=== PATIENT | male | born 1985 | race Caucasian/White ===

== ENCOUNTER 2020-07-17 08:16 | Emergency (ER) | payer OTHER ==
[~2020-07-17] VITALS: Ht 180.3 cm; Wt 94.5 kg
[2020-07-17] MEDS ORDERED: DEXAMETHASONE SOD PHOS 10 MG/ML VIAL. PO ONE (10:30)
[2020-07-17] MEDS ORDERED: METHOCARBAMOL 500 MG TABLET PO ONE (10:30)
[2020-07-17] MEDS ORDERED: IBUPROFEN 600 MG TABLET. PO ONE (10:30)
--- NOTE | 2020-07-17 10:47 | RAD ---
Exam Date: 07/17/2020 10:30 AM XR BILATERAL HIP (WITH OR WITHOUT PELVIS) 2 VIEWS_RIGHT Indication: Reason: RIGHT HIP PAIN. RADICULOPATHY. NKI. / Spl. Instructions: / History: FINDINGS/ IMPRESSION: No acute fracture or dislocation. Alignment and joint spaces are maintained. The soft tissues are w ithin normal limits. Electronically signed by: Stan Aponte MD (07/17/2020 10:45 AM) [id number]
[2020-07-17] MEDS ORDERED: IBUPROFEN 800 MG TABLET. PO ONE ×2 (10:51→11:00)
[2020-07-17] MEDS ORDERED: TIZANIDINE HCL2 MG PO (11:55)
[2020-07-17] MEDS ORDERED: METH4TAB2 PO (11:55)
--- NOTE | 2020-07-17 11:55 | PHYS DOC ---
Past History Past Medical History: Hypothyroid, Other Additional Past Medical Histor: DEGENERATIVE DISC DISEASE MID BACK; LOW TESTOSTERONE Past Surgical History: No Surgical History Alcohol Use: Occasionally Additional Alcohol Information: 1-2OZ WHISKEY NIGHTLY Adult General Chief Complaint Chief Complaint: HIP PAIN HPI HPI Patient is a previously healthy 35-year-old male who presents to the emergency room complaining of severe right posterior hip pain. Patient states that last he was running and suddenly he developed this severe pain. He states that every time he tried to put his foot down he had increase in pain. He states by the time he got home his other leg was also hurting because he was trying to compensate with that leg. He states that he was able to rest and the pain went completely away. He then woke up this morning and every time he tried to put his leg down the pain became intense. He has been having this pain ever since. He states that it starts in his posterior hip and radiates all the way down his leg. He states the pain is severe. He denies any kind of trauma. Is never had anything like this before. He denies any kind numbness or tingling. He denies any kind of fever. Review of Systems Review of Systems Complete ROS is negative unless otherwise documented in HPI Current Medications Current Medications Current Medications Medications (Trade) Dose Ordered Sig/Maurisio Start Time Stop Time Status Last Admin Dose Admin Dexamethasone Sodium Phosphate (Decadron) 10 mg 1X ONCE 07/17/20 10:30 07/17/20 10:50 DC 07/17/20 10:55 10 MG Ibuprofen (Motrin) 800 mg STK-MED ONCE 07/17/20 10:51 07/17/20 10:51 DC Methocarbamol (Robaxin) 500 mg 1X ONCE 07/17/20 10:30 07/17/20 10:50 DC 07/17/20 11:31 500 MG Allergies Allergies Allergies Coded Allergies Type Severity Reaction Last Updated Verified amoxicillin Allergy Unknown 07/17/20 Yes Physical Exam Physical Exam General: Awake, alert, NAD. Well Nourished, well hydrated. Cooperative HEENT: Atraumatic, EOMI, PERRL, airway patent, moist oral mucosa Neck: Supple, trachea midline Respiratory: CTA bilaterally, normal effort, no wheezing/crackles CV: RRR, no murmur, cap refill <2 GI: Soft, nondistended, nontender, no masses MSK: Right hip: Tenderness to the posterior and anterior hip, normal range of motion, difficulty standing secondary to pain, full range of motion of the knee and ankle Skin: Warm, dry, intact Neuro: A&O x3, speech NL, sensory and motor grossly intact, no focal deficits Psych: Normal affect, normal mood, not suicidal or homicidal Current Patient Data Vital Signs Vital Signs Date Time Temp Pulse Resp B/P (MAP) Pulse Ox O2 Delivery O2 Flow Rate FiO2 07/17/20 08:16 97.5 68 18 110/66 (81) 97 Room Air EKG EKG [] Radiology/Procedures Radiology/Procedures [] Heart Score C/O Chest Pain: N/A Risk Factors: Risk Factors: DM, Current or recent (<one month) smoker, HTN, HLP, family history of CAD, obesity. Risk Scores: Risk Factors: DM, Current or recent (<one month) smoker, HTN, HLP, family history of CAD, obesity. Course & Med Decision Making Course & Med Decision Making Pertinent Labs and Imaging studies reviewed. (See chart for details) Patient is a 35-year-old male who presents to the emergency room complaining of hip pain that radiates down his leg. Given the area the pain starts and it is possible this is related to sciatica. An x-ray was done of the hip to rule out any kind of effusion or abnormality and appears normal. Patient was given symptomatic care here in the emergency room. I have discussed with him doing ibuprofen at home as well as other symptomatic relief. I discussed with him that he can follow-up with Dr. Roa. Patient's test results and vitals while in the ED were fully reviewed and discussed with the patient. Patient is stable and at this time does not need admission to the hospital. We have discussed strict return precautions and the importance of following up with their Primary Care Physician. Patient stated understanding and was given an opportunity to ask any questions. Patient is in agreement with plan. Roberon Disclaimer Dragon Disclaimer This electronic medical record was generated, in whole or in part, using a voice recognition dictation system. Departure Departure: Impression: Primary Impression: Sciatica Additional Impression: Hip pain, acute Disposition: 01 DC HOME SELF CARE/HOMELESS Condition: IMPROVED Referrals: CHEYENNE MONTANO DO (PCP) Patient Instructions: Hip Bursitis, [id number], Sciatica Scripts Tizanidine Hcl (TIZANIDINE HCL) 2 Mg Tablet 2 MG PO PRN Q8HRS PRN for MUSCLE SPASMS for 5 Days, #20 TAB Prov: MERCEDES HERNANDEZ MD 07/17/20 Methylprednisolone (MEDROL) 4 Mg Tab.ds.pk 1 PKG PO UD for inflammation, #1 PKG Prov: MERCEDES HERNANDEZ MD 07/17/20 Problem Qualifiers MERCEDES HERNANDEZ MD Jul 17, 2020 11:55
[2020-07-17 12:19] VITALS: BP 110/68
== END 2020-07-17 12:19 | disposition home or self-care (01) ==
LOC: ER 08:16
DX: M25.551 Pain in right hip (principal); M54.31 Sciatica, right side; E03.9 Hypothyroidism, unspecified; Z88.1 Allergy status to other antibiotic agents
CPT/HCPCS: 73502; 99284; J1100